=== PATIENT | female | born 1945 | race African-American/Black ===

== ENCOUNTER 2018-09-11 17:05 | Emergency (ER) | payer MEDICARE ==
[~2018-09-11] VITALS: Ht 162.6 cm; Wt 63.5 kg
[2018-09-11] MEDS ORDERED: Morphine Sulfate 4mg/ml Inj (IV/IM USE ONLY) IVP ONE ×2 (18:45→21:15)
--- NOTE | 2018-09-11 19:15 | NUR ---
ED Nurse Note: RECIEVED REPORT TO [facility], PT IN BED AWAKE, ALERT AND ORIENTED X 4, PT HERE FROM HOME WITH C/O RIGHT FOOT PAIN, PT WAS RELEASED FROM HOSPITAL ON TUESDAY DUE TO PAIN FROM GOUT, PT STATES PAIN IS TOO SEVERE SHE CANT WALK AND ALMOST RUNNING OUT OF PAIN MEDS, PT DENIES CP, SOB, OR ANY OTHER COMPLAINTS OR DISCOMFORTS.
[2018-09-11 20:11] LABS: HEMATOCRIT 27.3 % (37.0-47.0); HEMOGLOBIN 8.6 G/DL (12.0-16.0); MEAN CORPUSCULAR VOLUME 92 FL (80-99); PLATELET COUNT 12 K/UL (150-450); RED BLOOD COUNT 2.96 M/UL (4.20-5.40); RED CELL DISTRIBUTION WIDTH 19.1 % (11.6-14.8)
[2018-09-11 20:15] VITALS: BP 151/78
[2018-09-11 20:24] LABS: ANION GAP 9 mmol/L (5-15); BLOOD UREA NITROGEN 27 mg/dL (7-18); CALCIUM 9.4 MG/DL (8.5-10.1); CARBON DIOXIDE 25 MMOL/L (21-32); CHLORIDE 108 MMOL/L (98-107); CREATININE 1.2 MG/DL (0.55-1.30); POTASSIUM 4.7 MMOL/L (3.5-5.1); SODIUM 142 MMOL/L (136-145)
[2018-09-11 20:36] LABS: ALANINE AMINOTRANSFERASE 28 U/L (12-78); ALBUMIN 3.4 G/DL (3.4-5.0); ALKALINE PHOSPHATASE 93 U/L (46-116); ASPARTATE AMINO TRANSFERASE 20 U/L (15-37); BILIRUBIN,TOTAL 1.4 MG/DL (0.2-1.0)
[2018-09-11 20:37] LABS: BILIRUBIN,DIRECT 0.5 MG/DL (0.0-0.3)
[2018-09-11 20:39] LABS: WHITE BLOOD COUNT 1.8 K/UL (4.8-10.8)
[2018-09-11] MEDS ORDERED: Morphine Sulfate 4mg/ml Inj (IV/IM USE ONLY) ONE (21:18)
--- NOTE | 2018-09-11 22:00 | NUR ---
ED Nurse Note: Pt continues to rest in bed, medicated for pain with morphine, scanner not working on computer, med signed, pt iv site patent, pt is being transferred to [facility] for continued care, pt is aware, transfer forms signed and pt family called by her, belongings list completed, will continue to closely monitor and prepre for hospital transfer.
--- NOTE | 2018-09-11 22:26 | Emergency Room Report ---
History of Present Illness General Chief Complaint: Pain Source: Patient, EMS Present Illness HPI 73-year-old female presents ED for evaluation. Brought in by EMS complaining of right foot pain. Patient states she has history of gout namely in her right foot. This feels a gout flare. Started a few days ago. Was seen by her PMD at [facility] on Tuesday. Was prescribed [place] and prednisone. States it is not helping her pain. Pain is throbbing, 10 out of 10, nonradiating. Unable to bear weight. Denies any injuries. Notes history of multiple myeloma. States she feels weak. Denies fevers chills. No other aggravating relieving factors. Denies any other associated symptoms Allergies: Coded Allergies: No Known Allergies (Unverified , 09/11/18) Patient History Past Medical History: HTN, other - gout Past Surgical History: none Pertinent Family History: none Social History: Denies: smoking, alcohol use, drug use Last Menstrual Period: na Now: No Immunizations: UTD Reviewed Nursing Documentation: PMH: Agreed; PSxH: Agreed Nursing Documentation-PMH Past Medical History: No History, Except For Hx Hypertension: Yes Review of Systems All Other Systems: negative except mentioned in HPI Physical Exam Vital Signs Date Time Temp Pulse Resp B/P (MAP) Pulse Ox O2 Delivery O2 Flow Rate FiO2 09/11/18 16:58 97.9 109 18 157/82 99 Room Air Sp02 EP Interpretation: reviewed, normal General Appearance: no apparent distress, alert, GCS 15, non-toxic Head: normocephalic, atraumatic Eyes: bilateral eye normal inspection, bilateral eye PERRL ENT: hearing grossly normal, normal pharynx, no angioedema, normal voice Neck: full range of motion, supple/symm/no masses Respiratory: chest non-tender, lungs clear, normal breath sounds, speaking full sentences Cardiovascular #1: regular rate, rhythm, no edema Cardiovascular #2: 2+ carotid (R), 2+ carotid (L), 2+ radial (R), 2+ radial (L) , 2+ dorsalis pedis (R), 2+ dorsalis pedis (L) Gastrointestinal: normal bowel sounds, non tender, soft, non-distended, no guarding, no rebound Rectal: deferred Genitourinary: normal inspection, no CVA tenderness Musculoskeletal: back normal, gait/station normal, normal range of motion, swelling - erythema/swelling R foot Neurologic: alert, oriented x3, responsive, motor strength/tone normal, sensory intact, speech normal Psychiatric: judgement/insight normal, memory normal, mood/affect normal, no suicidal/homicidal ideation Reflexes: 3+ bicep (R), 3+ bicep (L), 3+ tricep (R), 3+ tricep (L), 3+ knee (R) , 3+ knee (L) Skin: normal color, well hydrated, other - erythema R foot Lymphatic: no adenopathy Medical Decision Making Diagnostic Impression: Primary Impression: Gout flare Qualified Codes: M10.9 - Gout, unspecified Additional Impressions: Intractable pain Pancytopenia Multiple myeloma Qualified Codes: C90.00 - Multiple myeloma not having achieved remission Generalized weakness ER Course Hospital Course 73-year-old female presents ED complaining of right foot pain and swelling. History of gout Differential diagnoses include: gout, cellulitis, septic joint Clinical course Patient placed on stretcher. after initial history and physical I ordered labs , pain meds Labs - significant pancytopenia, electrolytes okay, uric acid elevated, CRP elevated I am not suspicious of septic joint. Not indurated therefore not likely cellulitic. Likely gout flare not amenable to outpatient therapy patient requiring multiple doses of pain meds here Because of insurance patient will be transferred to [facility] I feel this is a highly complex case requiring extensive working including EKG/ Rhythm strip, Xray/CT/US, Blood/urine lab work, repeat exams while in ED, and administration of strong opiates/narcotics for pain control, admission to hospital or close patient follow up. Diagnosis - gout flare, intracatble pain, pancytopenia, multiple myeloma, generalized weakness transferred in serious condition Labs Test 09/11/18 19:40 White Blood Count 1.8 K/UL (4.8-10.8) Red Blood Count 2.96 M/UL (4.20-5.40) Hemoglobin 8.6 G/DL (12.0-16.0) Hematocrit 27.3 % (37.0-47.0) Mean Corpuscular Volume 92 FL (80-99) Mean Corpuscular Hemoglobin 29.1 PG (27.0-31.0) Mean Corpuscular Hemoglobin Concent 31.5 G/DL (32.0-36.0) Red Cell Distribution Width 19.1 % (11.6-14.8) Platelet Count 12 K/UL (150-450) Mean Platelet Volume 11.7 FL (6.5-10.1) Neutrophils (%) (Auto) % (45.0-75.0) Lymphocytes (%) (Auto) % (20.0-45.0) Monocytes (%) (Auto) % (1.0-10.0) Eosinophils (%) (Auto) % (0.0-3.0) Basophils (%) (Auto) % (0.0-2.0) Differential Total Cells Counted 100 Neutrophils % (Manual) 48 % (45-75) Lymphocytes % (Manual) 33 % (20-45) Monocytes % (Manual) 9 % (1-10) Eosinophils % (Manual) 0 % (0-3) Basophils % (Manual) 2 % (0-2) Band Neutrophils 8 % (0-8) Platelet Estimate Decreased Platelet Morphology Normal Hypochromasia 2+ Anisocytosis 2+ Erythrocyte Sedimentation Rate 90 MM/HR (0-30) Sodium Level 142 MMOL/L (136-145) Potassium Level 4.7 MMOL/L (3.5-5.1) Chloride Level 108 MMOL/L (98-107) Carbon Dioxide Level 25 MMOL/L (21-32) Anion Gap 9 mmol/L (5-15) Blood Urea Nitrogen 27 mg/dL (7-18) Creatinine 1.2 MG/DL (0.55-1.30) Estimat Glomerular Filtration Rate mL/min (>60) Glucose Level 149 MG/DL (74-106) Uric Acid 8.8 MG/DL (2.6-7.2) Calcium Level 9.4 MG/DL (8.5-10.1) Total Bilirubin 1.4 MG/DL (0.2-1.0) Direct Bilirubin 0.5 MG/DL (0.0-0.3) Aspartate Amino Transf (AST/SGOT) 20 U/L (15-37) Alanine Aminotransferase (ALT/SGPT) 28 U/L (12-78) Alkaline Phosphatase 93 U/L (46-116) C-Reactive Protein, Quantitative 5.6 mg/dL (0.00-0.90) Total Protein 6.7 G/DL (6.4-8.2) Albumin 3.4 G/DL (3.4-5.0) Globulin 3.3 g/dL Albumin/Globulin Ratio 1.0 (1.0-2.7) Last Vital Signs Date Time Temp Pulse Resp B/P (MAP) Pulse Ox O2 Delivery O2 Flow Rate FiO2 09/11/18 16:58 97.9 109 18 157/82 99 Room Air Status: improved Disposition: XFER SHT-TRM HOSP Condition: Serious Referrals: [facility] (PCP) Fawad Howard MD Sep 11, 2018 22:26
[2018-09-11 22:45] VITALS: BP 145/83
--- NOTE | 2018-09-11 23:00 | NUR ---
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
[2018-09-11 23:10] VITALS: BP 145/83
== END 2018-09-11 23:10 | disposition short-term general hospital (02) ==
LOC: EDBD 17:05 → EMR 17:30
DX: M10.9 Gout, unspecified (principal); C90.00 Multiple myeloma not having achieved remission; D61.818 Other pancytopenia; I10 Essential (primary) hypertension
CPT/HCPCS: 36415; 80053; 82248; 84550; 85007; 85025; 85651; 86140; 96374; 96376; 99284; J2270